=== PATIENT | female | born 1945 | race Caucasian/White ===

== ENCOUNTER 2016-06-28 14:52 | Inpatient (IN) | payer OTHER ==
--- NOTE | 2016-06-28 15:16 | PROVIDER DOCUMENTATION ---
HPI-General Adult - General Chief Complaint: Shortness of Breath Stated Complaint: SOB Time Seen by Provider: 06/28/16 15:00 Source: patient, EMS Allergies/Adverse Reactions: Patient Allergies Allergy/AdvReac Type Severity Reaction Status Date / Time No Known Allergies Allergy Verified 06/25/16 11:46 Home Medications: Carvedilol [Coreg] 12.5 mg PO BID 06/25/16 Clonazepam [Klonopin] 1 mg PO BID 06/25/16 Donepezil [Aricept] 10 mg PO QHS 06/25/16 Glipizide 5 mg PO DAILY 06/25/16 Levothyroxine [Synthroid] 125 microgm PO DAILY 06/25/16 Losartan [Cozaar] 25 mg PO DAILY 06/25/16 Lovastatin 20 mg PO HS 06/25/16 Risperidone 1 mg PO HS 06/25/16 Sitagliptin [Januvia] 50 mg PO DAILY 06/25/16 Venlafaxine HCl [Venlafaxine HCl ER] 150 mg PO DAILY 06/25/16 - History of Present Illness -Gen Adult Nature of Presenting Problems: A 71 y/o F with multiple PMH presented with SOB and decreased oxygen saturation on room air. Do not use home O2. Pt was recently seen for right humerus fracture and has sling placed. History is limited as pt is poor historian and EMS has limited information. Complains of fatigue SOB and cough productive sputum appears more confused but EMS reported as baseline pt 2 sats were in 80's on RA and was put on 2 lit which brought her o2 to 95 Location of Pain/Injury: reports: upper extremity (right upper ext) Pain Radiation: reports: no radiation Similar Symptoms Previously?: No Recently seen or treated by another doctor?: Yes Review of Systems - Adult - REVIEW OF SYSTEMS - ADULT ROS:: limited per condition Constitutional: reports: see HPI Eyes: reports: no symptoms reported Ears, Nose, Mouth & Throat: reports: no symptoms reported Cardiovascular: reports: no symptoms reported Respiratory: reports: see HPI, cough Gastrointestinal: reports: no symptoms reported Genitourinary: reports: no symptoms reported Musculoskeletal: reports: no symptoms reported Integumentary: reports: no symptoms reported Neurological: reports: no symptoms reported Psychiatric: reports: no symptoms reported Endocrine: reports: no symptoms reported Hematologic/Lymphatic: reports: no symptoms reported Allergic/Immunologic: reports: no symptoms reported All Other Systems: Reviewed and Negative Past History - Adult - PAST MEDICAL HISTORY-ADULT Review of Records: reports: Old Records Reviewed, Nursing Assessment Review, Medications Reviewed, Social history reviewed & non-contributory. Major Childhood Illnesses: reports: denies history Cardiovascular: reports: denies history Respiratory: reports: denies history Gastrointestinal: reports: denies history Obstetrical/Gynecological: reports: denies history Genitourinary: reports: denies history Musculoskeletal: reports: denies history Neurological: reports: denies history Endocrine/Immune: reports: denies history Other Conditions: reports: denies history - FAMILY HISTORY Family History: reviewed, not pertinent Physical Exam-General - PHYSICAL EXAM-ADULT Initial Vital Signs Reviewed: Yes - CONSTITUTIONAL General Appearance: mild distress, lethargic - EYES Eyes: PERRL/EOMI, pink conjunctivae - HEAD, EARS, NOSE, MOUTH & THROAT HENMT: normocephalic/atraumatic, moist mucous membranes, normal ENT inspection - RESPIRATORY Respiratory: chest non-tender, lungs clear, normal breath sounds - CARDIOVASCULAR Cardiovascular: normal peripheral pulses, regular rate, rhythm, no edema - GASTROINTESTINAL (ABDOMEN) Abdominal Exam: normal bowel sounds, non tender, soft - MUSCULOSKELETAL Extremity: other (rigth arm limited ROM shoulder tenderness due to prior fracture) - SKIN Integumentary: normal color, normal turgor, warm/dry - NEUROLOGIC Neurologic: grossly normal, no motor/sensory deficits - PSYCHIATRIC Psych/Mental Status: normal mood/affect, normal thought content, normal thought process, oriented x 3
--- NOTE | 2016-06-28 15:32 | Diag Imaging Result Document ---
PROCEDURE NAME: CHEST-1 VIEW - 06/28/2016 AP CHEST: COMPARISON: Compared to 02/02/2011. FINDINGS: The lungs are well expanded. The heart is not enlarged. The vessels are not distended. No pneumonia. No pleural effusions identified. There are scattered granulomata. There is a fracture to the right humeral head and neck. No contusion or pneumothorax. The mediastinum is not widened. IMPRESSION: Recent injury to the right shoulder, but no acute chest abnormality.
--- NOTE | 2016-06-28 15:54 | EKG Report ---
Test Performed on : 06/28/2016 3:19:24 PM Test Reason : ED Blood Pressure : / mmHG Vent. Rate : 071 BPM Atrial Rate : 071 BPM P-R Int : 158 ms QRS Dur : 088 ms QT Int : 390 ms P-R-T Axes : 059 009 053 degrees QTc Int : 423 ms Normal sinus rhythm. Normal ECG When compared with ECG of 02-FEB-2011 13:24, No significant change was found Unconfirmed Result
[2016-06-28 16:13] LABS: MANUAL DIFF NEEDED? NO
[2016-06-28 16:19] LABS: BASO% 0.4 % (0.0-0.8); EOS# 0.35 X1000 (0.0-0.7); EOS% 4.4 % (0.0-10.0); HEMATOCRIT 39.9 % (37.0-47.0); HEMOGLOBIN 12.5 g/dL (12.0-16.0); LYMPH# 1.65 X1000 (1.2-3.4); LYMPH% 20.9 % (20.5-51.1); MCH 27.2 PG (27-31); MCHC 31.3 g/dL (33-37); MCV 86.7 FL (81-99); MONO# 1.09 X1000 (0.11-0.59); MONO% 13.8 % (1.7-9.3); MPV 12.2 FL (7.4-10.4); NEUT% 60.5 % (42.2-75.2); PLT 153 X1000 (130-400)
[2016-06-28 16:42] LABS: AGAP 10; BUN 19 mg/dL (8-22); CALCIUM 9.1 mg/dL (8.8-10.2); CHLORIDE 96 mmol/L (98-107); COSMO 279; POTASSIUM 3.8 mmol/L (3.5-5.1); SODIUM 139 mmol/L (136-145); TCO2 33 mmol/L (25-35)
[2016-06-28] MEDS ORDERED: ZOFRAN IV PRN (18:13)
[2016-06-28 18:14] LABS: URINE MICRO REVIEW NEEDED? NO; URINE SOURCE CATH
[2016-06-28 18:19] LABS: BILIRUBIN URINE NEGATIVE (NEGATIVE); BLOOD URINE NEGATIVE (NEGATIVE); COLOR ORANGE; GLUCOSE URINE NEGATIVE (NEGATIVE); LEUKOCYTES URINE LARGE (NEGATIVE); NITRITE URINE POSITIVE (NEGATIVE); PH URINE 6.5; PROTEIN URINE 30 mg/dL (NEGATIVE); TURBIDITY URINE HAZY (CLEAR); UR EPITHELIAL CELLS <10 /HPF (<10); URINE BACTERIA 4+ /HPF; URINE CULTURE NEEDED? YES; URINE WBC TNTC /HPF (<10); UROBILINOGEN URINE 8 mg/dL (NORMAL)
[2016-06-28] MEDS: LEVAQUIN 500 MG/D5W 100 ML IV SCH (21:35)
[2016-06-28] MEDS: NS 1,000 ML IV SCH (21:35)
[2016-06-28] MEDS: LOVENOX SUBQ SCH (21:36)
[2016-06-28] MEDS: COREG PO SCH (21:36)
[2016-06-28] MEDS: RISPERDAL PO SCH (21:36)
[2016-06-28] MEDS: ARICEPT PO SCH (21:36)
[2016-06-28] MEDS: KLONOPIN PO SCH (21:36)
[2016-06-28] MEDS: HUMULIN R SUBQ SCH (22:42)
--- NOTE | 2016-06-28 22:49 | Diag Imaging Result Document ---
PROCEDURE NAME: HEAD W/O CONTRAST - 06/28/2016 CT BRAIN WITHOUT. DOSE REDUCTION PROTOCOL. COMPARISON: 08/17/2010. FINDINGS: No parenchymal hemorrhage. No epidural or subdural hematoma. No subarachnoid hemorrhage. There is diffuse atrophy with prominent microvascular ischemic changes. Old bilateral lacunes. No mass identified on this noncontrasted exam. No sinus opacification. There is mucous in the ethmoid sinuses. IMPRESSION: 1. No hemorrhage. 2. Atrophy with prominent microvascular ischemic changes and old lacunes. 3. Mild sinusitis. A preliminary report was given at 9:22 p.m..
[2016-06-29] MEDS: HUMULIN R SUBQ SCH ×4 (06:43→22:31)
[2016-06-29] MEDS: KLONOPIN PO SCH ×2 (08:30→20:07)
[2016-06-29] MEDS: COREG PO SCH ×2 (08:33→20:06)
[2016-06-29] MEDS: EFFEXOR XR PO SCH (08:33)
[2016-06-29] MEDS: SYNTHROID PO SCH (08:33)
[2016-06-29] MEDS: COZAAR PO SCH (08:34)
[2016-06-29] MEDS: JANUVIA PO SCH (08:34)
[2016-06-29] MEDS: GLUCOTROL PO SCH (08:34)
[2016-06-29] MEDS: NS 1,000 ML IV SCH (10:49)
--- NOTE | 2016-06-29 13:37 | PROGRESS NOTE ---
DATE: 06/29/2016 SUBJECTIVE: Ms. Triplett was admitted to [facility] with acute metabolic encephalopathy secondary to UTI. She has a longstanding history of vascular dementia and, prior to admission, her family had reported that she had been very confused, disoriented, and talking out of her head. Her CT scan demonstrated diffuse white matter changes and generalized cerebral atrophy. This morning, she is much more alert. She is sitting up and is interactive with family and staff. She answers questions appropriately. She is oriented to name and place. Blood sugars are ranging from 88-149. She denies any polyuria, polydipsia, or episodes of symptomatic hypoglycemia. Her blood pressure is fluctuating. Systolic blood pressures have ranged from 146- 170 whereas her diastolic blood pressures have ranged from 68-77. OBJECTIVE: Vital Signs: Temperature 98.9 degrees, pulse 80, respirations 20, BP 170/77. CV: Regular rate and rhythm. Lungs clear. Abdomen: Mild suprapubic tenderness to deep palpation. No rebound or guarding. ASSESSMENT AND PLAN: 1. Metabolic encephalopathy secondary to an underlying urinary tract infection. We will continue rehydration with normal saline and continue broad-spectrum antibiotics including Levaquin pending urine cultures and blood cultures x2. We will continue the Aricept. 2. Hypertension. Her blood pressure is a little bit too high. I am going to increase the Coreg to 25 mg b.i.d. and monitor her blood pressure closely. 3. Type 2 [id number] diabetes mellitus. We will continue her on an 1800 calorie ADA diet, pattern sugars, Humulin R sliding scale, and her regular home dosage of Glucotrol.
--- NOTE | 2016-06-29 14:51 | HISTORY AND PHYSICAL ---
HISTORY OF PRESENT ILLNESS: Ms. Martha Triplett is a 71-year-old, lady with a history of multiple medical problems including type 2 slh-rjtvofe-rcqjqljhc diabetes mellitus, essential hypertension, overactive bladder, primary hypothyroidism, mixed hyperlipidemia, and vascular dementia who is well known to me. She had been seen earlier in the week after sustaining a right humeral fracture. Her family brought her to the ER because of confusion. Over the past several days she had become increasingly confused and disoriented. Her family reported that she was talking out of her head. At times she could recognize family members at other times she could not recognize family members. The family reported that at times she seemed to have slurred speech and had difficulty getting words out. The family also reports that she seems very weak and had difficulty performing activities of daily living on an independent manner. She is incontinent of urine. They reported that her urine had had an increasingly pungent smell and appeared to be quite concentrated in the diaper. PAST MEDICAL HISTORY: As above. PAST SURGICAL HISTORY: Decompression of the median nerve on the right. ALLERGIES: No known drug allergies. FAMILY HISTORY: Her father had hypertension and of an OH at age 55. Her mother had hypertension and diabetes and at the age of 92. A brother of an OH at age 58. A sister at age 59 of an OH. She also had hypertension and diabetes. SOCIAL HISTORY: She has never smoked. She does not consume alcoholic beverages. REVIEW OF SYSTEMS: General: She denies any recent weight gain or weight loss. HEENT: She wears glasses. CARDIOVASCULAR: No chest pain. Pulmonary: No shortness of breath. GI: No reflux, dysphagia, melena, or hematochezia. Endocrine: No polyuria, no polydipsia. Skin: No easy bruisability. : She is incontinent of urine and wears a diaper. Skin: Neurologic: She has increasing confusion and disorientation. PHYSICAL EXAMINATION: GENERAL: This is an acutely ill-appearing, 71-year-old, lady. VITAL SIGNS: Temperature 99.2 degrees, blood pressure 165/80, respirations 18, pulse 86. HEENT: Luli with arteriolar wall thickening. Pupils equal, round, reactive to light. Extraocular eye movements intact. TMs without bullae. NECK: Supple. No masses, JVD or bruits. CARDIOVASCULAR: Regular rate and rhythm. LUNGS: Clear. ABDOMEN: Soft. Good bowel sounds. No hepatosplenomegaly. She does have suprapubic tenderness to deep palpation. EXTREMITIES: Without edema. NEUROLOGIC: She is sedated and confused, she is oriented to name only. Some of her answers are nonsensical. ASSESSMENT AND PLAN: 1. Metabolic encephalopathy. I suspect that she has a urinary tract infection which is causing encephalopathy in the setting of vascular dementia. I am going to begin normal saline at 75 mL per hour and begin Levaquin 500 mg IV daily pending a urine culture and sensitivity. She is not hypertensive. She has normal renal function. She is not tachypneic. She does not appear to be septic at this time. Her lactate level was normal. 2. Hypertension. We will continue her regular medications and monitor her blood pressure closely. 3. Mixed hyperlipidemia. She is with complaint of muscle weakness and muscle aches. I will stop the lovastatin and check a CPK. 4. Type 2 [id number]-buodsktyr diabetes mellitus. We will place her on 1800 calorie ADA diet, pattern sugars, Humulin R sliding scale and her regular home dosage of glipizide and Januvia. Given the patient's clinical course and comorbid conditions, I anticipate that she will be in the hospital for longer than 2 midnights and I will therefore place her in inpatient status. I will begin Lovenox 40 mg subcutaneously daily for deep venous thrombosis prophylaxis.
[2016-06-29] MEDS: NORCO-5 PO PRN (16:03)
[2016-06-29] MEDS: LEVAQUIN 500 MG/D5W 100 ML IV SCH (17:56)
[2016-06-29] MEDS: LOVENOX SUBQ SCH (17:57)
[2016-06-29] MEDS: ARICEPT PO SCH (20:06)
[2016-06-29] MEDS: RISPERDAL PO SCH (20:06)
[2016-06-29] MEDS: TYLENOL PO PRN (20:07)
[2016-06-30] MEDS: NS 1,000 ML IV SCH ×2 (00:55→12:23)
[2016-06-30] MEDS: HUMULIN R SUBQ SCH ×4 (06:00→21:44)
[2016-06-30] MEDS ORDERED: CALMOSEPTINE OINTMENT TOP PRN (07:34)
[2016-06-30] MEDS: JANUVIA PO SCH (10:27)
[2016-06-30] MEDS: SYNTHROID PO SCH (10:30)
[2016-06-30] MEDS: KLONOPIN PO SCH ×2 (10:30→21:42)
[2016-06-30] MEDS: COZAAR PO SCH (10:30)
[2016-06-30] MEDS: EFFEXOR XR PO SCH (10:31)
[2016-06-30] MEDS: GLUCOTROL PO SCH (10:31)
[2016-06-30] MEDS: COREG PO SCH ×2 (10:31→21:03)
--- NOTE | 2016-06-30 12:04 | PROGRESS NOTE ---
DATE: 06/30/2016 SUBJECTIVE: Ms. Triplett feels better. She denies any distress or shortness of breath. I can hear some end expiratory wheezing. Daughter was at the bedside. She also feels she is improving quite a bit especially with her mental status. OBJECTIVE: Vital Signs: Temperature 98.4 degrees, pulse 72, respirations 18, blood pressure 154/74. Lungs are clear. Inspiratory: She has mild prolongation expiratory phase with end expiratory wheezing throughout her lung grajeda. Cardiovascular: Regular rhythm and rate without murmur or S3. Abdomen is soft. No pedal edema. Good urine output from yesterday, over 2 L. Blood sugar is 121, 51, 165. Review of her head CT without contrast unremarkable. Atrophy. Prominent microvascular ischemic changes of old lacunes. Chest x-ray on presentation: Recent injury to right shoulder. No acute chest abnormality. ASSESSMENT AND PLAN: 1. Metabolic encephalopathy secondary to underlying urinary tract infection. Continue current antibiotics of Levaquin. She is showing marked improvement. Hope to send her home when able with home health. 2. Hypertension. Blood pressures continue to follow. 3. Diabetes mellitus, type 2. We will follow blood sugars. Continue physical therapy. Because of the little bit of wheezing, I am going to add Advair to her regimen. REVIEW OF MEDICATIONS: 1. Coreg 25 b.i.d. 2. Synthroid 125 mcg daily. 3. Risperidone 1 mg at bedtime. 4. IV fluids presently at 75. I think I can probably cut those down. 5. She is on Levaquin 500 mg daily. 6. Januvia 50 mg daily. 7. Glucotrol 5 mg a day. 8. Effexor 150 mg daily. 9. Klonopin 1 mg b.i.d. 10. Aricept 10 mg at bedtime. 11. Cozaar 100 mg daily. I will add Advair to her regimen. We will decrease fluids down a little bit, and I think I will check a chest x-ray in the morning.
[2016-06-30] MEDS: NORCO-5 PO PRN ×2 (13:21→21:44)
[2016-06-30] MEDS: ADVAIR 250/50 DISKUS INH SCH ×2 (16:27→20:40)
[2016-06-30] MEDS: LEVAQUIN 500 MG/D5W 100 ML IV SCH (18:52)
[2016-06-30] MEDS: LOVENOX SUBQ SCH (18:53)
[2016-06-30] MEDS: RISPERDAL PO SCH (21:02)
[2016-06-30] MEDS: ARICEPT PO SCH (21:02)
[2016-07-01] MEDS: NORCO-5 PO PRN (05:32)
[2016-07-01 07:09] LABS: AGAP 9; BUN 22 mg/dL (8-22); CALCIUM 7.3 mg/dL (8.8-10.2); CHLORIDE 108 mmol/L (98-107); COSMO 289; POTASSIUM 3.6 mmol/L (3.5-5.1); SODIUM 143 mmol/L (136-145); TCO2 26 mmol/L (25-35)
[2016-07-01] MEDS: ADVAIR 250/50 DISKUS INH SCH ×2 (08:37→19:59)
--- NOTE | 2016-07-01 08:49 | Diag Imaging Result Document ---
PROCEDURE NAME: CHEST-PORTABLE - 07/01/2016 AP PORTABLE CHEST AT 0500 HOURS: FINDINGS: There is apparent increased opacification of the retrocardiac region of the left lower lobe compared to 06/28/2016 otherwise, there has been no significant change. IMPRESSION: Atelectasis versus pneumonia left lower lobe.
[2016-07-01] MEDS: SYNTHROID PO SCH (09:24)
[2016-07-01] MEDS: COREG PO SCH ×2 (09:25→20:07)
[2016-07-01] MEDS: COZAAR PO SCH (09:25)
[2016-07-01] MEDS: GLUCOTROL PO SCH (09:26)
[2016-07-01] MEDS: KLONOPIN PO SCH ×2 (09:26→20:07)
[2016-07-01] MEDS: JANUVIA PO SCH (09:26)
[2016-07-01] MEDS: EFFEXOR XR PO SCH (09:26)
--- NOTE | 2016-07-01 11:58 | PROGRESS NOTE ---
DATE: 07/01/2016 SUBJECTIVE: The patient apparently had some trouble. She started coughing while she has been eating and drinking. Thought maybe she aspirated a little bit. The family was concerned. Nurse wanted to get a chest x-ray. Has a little bit of rhonchi in the right upper lung. Breathing comfortably. We will get her some breathing treatments. PHYSICAL EXAMINATION: Vital Signs: Temperature 98.3 degrees, pulse 77, respirations 18, blood pressure 154/67. Lungs: Are clear in all lung grajeda. Cardiovascular Examination: Regular rhythm and rate without murmur or S3. Abdomen: Soft. Skin: Is warm and dry. Is and Os: Good urine output. LAB: Reviewed from the . We will check some more in the morning. Electrolytes today, sodium 143, potassium 3.6, chloride 106, bicarb 26, BUN 22, creatinine 0.5, blood sugar 165, 174, 104. Chest x-ray, atelectasis versus pneumonia, left lower lobe. It was done today. ASSESSMENT AND PLAN: 1. Metabolic encephalopathy secondary to underlying urinary tract infection, had been treated with Levaquin. 2. It appears she has a left lower lobe pneumonia. We will treat for respiratory organisms. Continue present antibiotics. 3. Diabetes mellitus type 2. 4. A little bit of trouble swallowing. To me, she looks a little lethargic this morning. I had a talk with family. We need to decrease any medications that may be diminishing her ability to clear secretions and breathe deeply. 5. Underlying dementia. Aware. 6. Looking at her orders, the 1st thing we are going to eliminate is the pain medication. I think I will decrease the Klonopin down to 0.5 twice a day, see if that will help. Continue the other medications. List of medicines right now, she is on Coreg 25 twice a day, Synthroid 125 mcg a day, Risperdal 1 mg by mouth at bedtime. She is on Lovenox daily 40 mg. She is on the Levaquin 500 mg daily, Januvia 50 mg daily, Glucotrol 5 mg a day, Effexor ER 150 mg a day, Klonopin 1 mg twice a day, Aricept 10 mg at bedtime, Cozaar 100 mg a day. We will going to cut the Klonopin down to 0.5 twice a day. We are going to stopped the pain medications.
--- NOTE | 2016-07-01 12:57 | Diag Imaging Result Document ---
PROCEDURE NAME: CHEST-PORTABLE - 07/01/2016 PORTABLE CHEST AT 1035 HOURS: FINDINGS: There is a hand projected over the right lower chest. Otherwise, the appearance of the chest has not changed significantly since the previous study of 0500 hours. IMPRESSION: Probable stable chest.
[2016-07-01] MEDS: NS 1,000 ML IV SCH (13:07)
[2016-07-01] MEDS: HUMULIN R SUBQ SCH ×2 (13:08→18:47)
[2016-07-01] MEDS: DUONEB (A & A) INH PRN (15:51)
[2016-07-01] MEDS: LOVENOX SUBQ SCH (18:47)
[2016-07-01] MEDS: LEVAQUIN 500 MG/D5W 100 ML IV SCH (18:47)
[2016-07-01] MEDS: TYLENOL PO PRN ×2 (20:03→23:54)
[2016-07-01] MEDS: ARICEPT PO SCH (20:07)
[2016-07-01] MEDS: RISPERDAL PO SCH (20:07)
[2016-07-02] MEDS: HUMULIN R SUBQ SCH ×5 (00:18→21:46)
[2016-07-02] MEDS: TYLENOL PO PRN ×2 (03:51→19:00)
[2016-07-02] MEDS: ADVAIR 250/50 DISKUS INH SCH ×2 (07:58→20:20)
[2016-07-02] MEDS: DUONEB (A & A) INH PRN (07:58)
[2016-07-02] MEDS: GLUCOTROL PO SCH (08:08)
[2016-07-02] MEDS: COREG PO SCH ×2 (08:08→21:52)
[2016-07-02] MEDS: SYNTHROID PO SCH (08:08)
[2016-07-02] MEDS: JANUVIA PO SCH (08:08)
[2016-07-02] MEDS: EFFEXOR XR PO SCH (08:08)
[2016-07-02] MEDS: KLONOPIN PO SCH ×2 (08:08→21:52)
[2016-07-02] MEDS: COZAAR PO SCH (08:09)
[2016-07-02] MEDS: NS 1,000 ML IV SCH (11:13)
--- NOTE | 2016-07-02 11:23 | PROGRESS NOTE ---
DATE: 07/02/2016 SUBJECTIVE: Ms. Triplett is more wake, more alert. Her breathing appears to be more comfortable. She has coughed a little bit, but her swallowing is better.Vital Signs: Temperature 97.7 degrees, pulse 80, respirations 18, blood pressure 166/78. Lungs: Clear in all lung grajeda anterolaterally and posteriorly. Cardiovascular: Regular rhythm and rate without murmur or S3. Abdomen: Soft. Skin is warm and dry. Urine Output: Her urine output is above 3 liters. LABORATORIES: Her labs were reviewed from 06/28/2016. CBC and electrolytes from yesterday looked good. Blood sugars 83, 127, 117. Chest x-ray, probable stable chest. There is a hand projected over the right lower chest, otherwise the appearance of the chest is not changed. ASSESSMENT AND PLAN: 1. Metabolic encephalopathy. This is improved and I suspect is multifactorial, treating for urinary tract infection, but I also the medication played a roll. 2. Left lower lobe pneumonia. Continue present antibiotics. 3. She was choking and coughing with swallowing I think that was because she was partially sedated and lethargic. We have cut down on her Klonopin, taken away her pain medicine, and she appears to be better now. She is complaining a little more, but she is much more awake, and her coughing clearance looks better. 4. Trouble swallowing. We will see if this is improved with diminished sedation. 5. Underlying dementia, aware. 6. We will see how we do with her oral intake. 7. Note that the check the x-ray that we did yesterday was stable. Previous x-ray suggested left lower lobe infiltrate, so this appears to have cleared up. She has had a recent injury to her right shoulder. Chest x-ray from 07/01/2016, atelectasis versus pneumonia of the left lower lobe.
[2016-07-02] MEDS: LEVAQUIN 500 MG/D5W 100 ML IV SCH (17:30)
[2016-07-02] MEDS: RISPERDAL PO SCH (21:52)
[2016-07-02] MEDS: LOVENOX SUBQ SCH (21:52)
[2016-07-02] MEDS: ARICEPT PO SCH (21:52)
[2016-07-03] MEDS: TYLENOL PO PRN ×2 (04:05→17:32)
[2016-07-03] MEDS: HUMULIN R SUBQ SCH ×4 (07:52→20:44)
[2016-07-03] MEDS: NS 1,000 ML IV SCH (07:53)
[2016-07-03] MEDS: COREG PO SCH ×2 (08:52→20:43)
[2016-07-03] MEDS: EFFEXOR XR PO SCH (08:52)
[2016-07-03] MEDS: GLUCOTROL PO SCH (08:52)
[2016-07-03] MEDS: KLONOPIN PO SCH ×2 (08:53→20:43)
[2016-07-03] MEDS: COZAAR PO SCH (08:53)
[2016-07-03] MEDS: SYNTHROID PO SCH (08:53)
[2016-07-03] MEDS: JANUVIA PO SCH (08:53)
[2016-07-03 09:24] LABS: HEMATOCRIT 34.9 % (37.0-47.0); MCH 27.5 PG (27-31); MCHC 31.5 g/dL (33-37); MCV 87.3 FL (81-99); MPV 10.7 FL (7.4-10.4)
--- NOTE | 2016-07-03 09:34 | Diag Imaging Result Document ---
PROCEDURE NAME: CHEST-PORTABLE - 07/03/2016 PORTABLE CHEST X-RAY: COMPARISON: 07/01/2016. FINDINGS: There are numerous bilateral calcified granulomas in the lungs. No focal infiltrates. No pneumothorax or large effusion. Heart size remains top normal. IMPRESSION: No definite acute disease.
[2016-07-03] MEDS: DUONEB (A & A) INH PRN (09:51)
[2016-07-03] MEDS: ADVAIR 250/50 DISKUS INH SCH ×2 (09:51→19:28)
[2016-07-03 10:05] LABS: AGAP 9; BUN 14 mg/dL (8-22); CALCIUM 8.4 mg/dL (8.8-10.2); CHLORIDE 105 mmol/L (98-107); COSMO 287; POTASSIUM 3.8 mmol/L (3.5-5.1); SODIUM 142 mmol/L (136-145); TCO2 28 mmol/L (25-35)
--- NOTE | 2016-07-03 13:00 | PROGRESS NOTE ---
DATE: 07/03/2016 Mrs. Triplett was admitted to [facility] with metabolic encephalopathy secondary to the UTI. Urine culture grew out E. coli sensitive to multiple medications. She continues with a persistent cough productive of yellowish sputum, mild pleuritic chest pain with deep inspiration and paroxysms of cough, and is breathing comfortably on supplemental O2. O2 status ranged from 95- 97% on 2 L of O2. Chest x-ray showed the possibility of an infiltrate but repeat films today showed no evidence of pneumonia. She was still very weak. Physical therapy did not work with her over the weekend due to the holidays. She is back to her baseline neurologically. Temperature 98.1 degrees, pulse 87, respirations 20, BP 137/62. CV: Regular rate and rhythm. Lungs: Scattered rhonchi throughout all lung grajeda. Abdomen: Soft, nontender, with active bowel sounds. ASSESSMENT AND PLAN: 1. Metabolic encephalopathy secondary to urinary tract infection. Clinically, she is back to her baseline. Apparently she had some increasing sedation and confusion over the weekend and Dr. Segura reduced the dosage of the Klonopin. She appears back to her baseline today. I am going to switch her to p.o. Levaquin. 2. Acute bronchitis. We will continue the Levaquin and DuoNeb nebulizer treatments. 3. Hypertension. Her blood pressure is stable. We will continue losartan 100 mg daily as well as Coreg 25 mg b.i.d. 4. Physical debility. She was really too weak to go home. We will continue physical therapy. We are working to find a rehab bed.
[2016-07-03] MEDS: DUONEB (A & A) INH SCH ×3 (15:18→21:23)
[2016-07-03] MEDS: LEVAQUIN 500 MG/D5W 100 ML IV SCH (17:31)
[2016-07-03] MEDS: ARICEPT PO SCH (20:43)
[2016-07-03] MEDS: RISPERDAL PO SCH (20:43)
[2016-07-03] MEDS: LOVENOX SUBQ SCH (21:45)
[2016-07-04] MEDS: DUONEB (A & A) INH SCH ×3 (03:34→16:07)
[2016-07-04] MEDS: TYLENOL PO PRN ×2 (04:02→13:38)
[2016-07-04] MEDS: NS 1,000 ML IV SCH (06:25)
[2016-07-04] MEDS: HUMULIN R SUBQ SCH ×4 (08:08→20:34)
[2016-07-04] MEDS: JANUVIA PO SCH (08:09)
[2016-07-04] MEDS: COZAAR PO SCH (08:09)
[2016-07-04] MEDS: GLUCOTROL PO SCH (08:09)
[2016-07-04] MEDS: EFFEXOR XR PO SCH (08:10)
[2016-07-04] MEDS: COREG PO SCH ×2 (08:10→20:34)
[2016-07-04] MEDS: KLONOPIN PO SCH ×2 (08:10→20:38)
[2016-07-04] MEDS: SYNTHROID PO SCH (08:10)
--- NOTE | 2016-07-04 08:41 | PROGRESS NOTE ---
DATE: 07/04/2016 SUBJECTIVE: Mrs. Triplett was admitted to [facility] with a metabolic encephalopathy secondary to UTI. Urine cultures grew out E. coli. Blood cultures were negative at 5 days. She is awake and easily arousable. She does have baseline confusion and appears to be back to her baseline neurologically. She is sitting up. She is interactive with family and staff and is eating without any evidence of coughing or choking. Her chest x-ray was clear. Blood sugars are ranging from 94 to 148. OBJECTIVE: Vital Signs: Temperature 98.0, pulse 76, respirations 18, BP 154/79. CV: Regular rate and rhythm. Lungs: Clear. Abdomen: Soft, nontender, with active bowel sounds. ASSESSMENT AND PLAN: 1. Metabolic encephalopathy secondary to urinary tract infection. I am going to Hep-Lock her fluids. We will switch to p.o. Levaquin. She still is very weak physically and we will continue physical therapy. We are attempting to find a rehab bed for the patient. 2. Hypertension. Her blood pressure is generally well controlled. We will continue losartan 100 mg daily, as well as Coreg 25 mg b.i.d. 3. Type 2 noninsulin-dependent diabetes mellitus. We will continue pattern sugars, Humulin R sliding scale, and her regular home dosage of glipizide and Januvia 50 mg daily.
[2016-07-04] MEDS: ADVAIR 250/50 DISKUS INH SCH (09:52)
[2016-07-04] MEDS: LEVAQUIN 500 MG/D5W 100 ML IV SCH (18:07)
[2016-07-04] MEDS: ARICEPT PO SCH (20:34)
[2016-07-04] MEDS: LOVENOX SUBQ SCH ×2 (20:34→22:28)
[2016-07-04] MEDS: RISPERDAL PO SCH (20:38)
[2016-07-05] MEDS: ADVAIR 250/50 DISKUS INH SCH ×2 (04:09→08:05)
[2016-07-05] MEDS: DUONEB (A & A) INH SCH ×2 (04:09→10:12)
[2016-07-05] MEDS: NS 1,000 ML IV SCH (05:50)
[2016-07-05] MEDS: HUMULIN R SUBQ SCH ×2 (06:29→11:19)
[2016-07-05] MEDS: COREG PO SCH ×2 (07:54→11:17)
[2016-07-05] MEDS: JANUVIA PO SCH ×2 (07:54→11:18)
[2016-07-05] MEDS: KLONOPIN PO SCH ×2 (07:54→11:18)
[2016-07-05] MEDS: SYNTHROID PO SCH ×2 (07:54→11:18)
[2016-07-05] MEDS: GLUCOTROL PO SCH ×2 (07:55→11:18)
[2016-07-05] MEDS: COZAAR PO SCH ×2 (07:55→11:17)
[2016-07-05] MEDS: EFFEXOR XR PO SCH ×2 (07:55→11:18)
--- NOTE | 2016-07-05 10:18 | DISCHARGE SUMMARY ---
ADMISSION DATE: 06/28/2016 DISCHARGE DATE: 07/05/2016 DISCHARGE DIAGNOSES: 1. Metabolic encephalopathy secondary to urinary tract infection. 2. Type 2 noninsulin-dependent diabetes mellitus. 3. Essential hypertension. 4. Overactive bladder. 5. Primary hypothyroidism. 6. Mixed hyperlipidemia. 7. Vascular dementia with a history of behavioral issues. 8. Depression. 9. Previous right humeral fracture. DISCHARGE INSTRUCTIONS: 1. Return to clinic. The patient will be transferred via ambulance in order to undergo short- term rehab. 2. Activity as tolerated. 3. Mechanical soft diet, 1800 calorie ADA. MEDICATIONS: DuoNeb nebulized q.6 hours. Coreg 25 mg b.i.d., Klonopin 0.5 mg b.i.d., Aricept 10 mg daily. Glipizide 5 mg daily, Levaquin 500 mg daily for 10 days. Levothyroxine 125 mcg daily. Losartan 100 mg daily. Risperdal 1 mg at bedtime, Advair 250/50 one puff b.i.d., Januvia 50 mg daily, Effexor XR 150 mg daily. PHYSICAL EXAMINATION: General: This is a well-developed, well nourished, 71-year-old, lady in no apparent distress. Vital Signs: She is afebrile. Vital signs are stable. CV: Regular rate and rhythm. Lungs: Clear. Abdomen: Soft, nontender, with active bowel sounds. HISTORY AND HOSPITAL COURSE: Ms. Triplett has a long-standing history of vascular dementia. She presented to the ER with increasing confusion, disorientation and progressive confusion, different from her baseline. Her initial CT scan of the brain demonstrated chronic white matter changes. Her initial urinalysis was positive. She was started on broad-spectrum antibiotics pending urine culture and blood cultures. Urine culture grew out E. coli. Blood cultures demonstrated no growth at 5 days. With rehydration and aggressive management and IV antibiotic therapy, her confusion and disorientation improved significantly and she returned to her baseline neurologically. She was switched to oral Levaquin and will continue an additional 10 day course of Levaquin as an outpatient. She has a long-standing history of mixed hyperlipidemia. She had been with complaint of increasing muscle aches, muscle pain and weakness. The family reported that she was having difficulty transferring out of a chair or a bed. Her CPK was mildly elevated. We stopped the atorvastatin. Her weakness improved off the atorvastatin with physical therapy. We felt that she was still not strong enough to safely return home and we felt that she would benefit from short- term rehab. She has a history of hypertension. Her blood pressure fluctuated initially on admission. We adjusted her blood pressure medicines with stabilization of her blood pressure. She does have a long-standing history of COPD. During her hospitalization, she was with complaint of a productive cough of yellowish sputum, pleuritic chest pain and mild dyspnea. She was treated with DuoNeb nebulizer treatments, Advair, supplemental O2, and was continued on broad-spectrum antibiotics. Her initial chest x-ray showed a possible infiltrate, but subsequent chest x-rays demonstrated no evidence of pneumonia. She was felt to have an acute COPD exacerbation with tracheobronchitis. We will continue Advair nebulizer treatments at home and she will take an additional 10 day course of oral Levaquin. During her hospitalization, she had episodes in which her family reported that she had some coughing and choking with meals. We felt that the patient was over-sedated. We held her pain medicines and reduced her Klonopin. As her level of alertness improved, her episodes of coughing with eating diminished significantly. Now that she is back to her baseline, I will ask speech therapy to evaluate her while she is at rehab and to consider a modified barium swallow. Having reached maximum hospital benefit, the patient was discharged in stable condition.
[2016-07-05 11:33] VITALS: BP 138/90
[2016-07-05] MEDS ORDERED: DILAUDID IV PRN (12:27)
[2016-07-05] MEDS ORDERED: SODIUM CHLORIDE 0.9% INJ PRN (12:28)
[2016-07-05] MEDS ORDERED: PHENERGAN IV PRN (12:30)
[2016-07-05] MEDS ORDERED: LEVAQUIN PO SCH (17:00)
== END 2016-07-05 14:11 | DRG 689 ==
LOC: EDBD → SUPCPDRO 14:52 → ED 14:52 → 4N 17:51
PROVIDERS: ADMIT Internal Medicine; ATTEND Internal Medicine
DX: N39.0 Urinary tract infection, site not specified (principal); G93.41 Metabolic encephalopathy; J44.0 Chronic obstructive pulmonary disease with (acute) lower respiratory infection; R13.10 Dysphagia, unspecified; J20.9 Acute bronchitis, unspecified; J44.1 Chronic obstructive pulmonary disease with (acute) exacerbation; E11.9 Type 2 diabetes mellitus without complications; F01.50 Vascular dementia, unspecified severity, without behavioral disturbance, psychotic disturbance, mood disturbance, and anxiety; I10 Essential (primary) hypertension; E03.9 Hypothyroidism, unspecified; E78.2 Mixed hyperlipidemia; N32.81 Overactive bladder; B96.20 Unspecified Escherichia coli [E. coli] as the cause of diseases classified elsewhere; Z79.899 Other long term (current) drug therapy; Z79.84 Long term (current) use of oral hypoglycemic drugs; Z82.49 Family history of ischemic heart disease and other diseases of the circulatory system; Z83.3 Family history of diabetes mellitus; T42.4X5A Adverse effect of benzodiazepines, initial encounter
CPT/HCPCS: 36415; 51702; 70450; 71010; 80048; 81001; 82550; 82948; 83605; 85025; 85027; 87040; 87077; 87088; 87186; 93005; 94640; 94761; 94799; 99285; J1650; J7030; 97001-GP; 97530-GP